=== PATIENT | female | born 1965 | race Caucasian/White ===

== ENCOUNTER → 2017-03-01 | Outpatient (CLI) | payer BC ==
--- NOTE | 2017-03-02 14:24 | RADRPT ---
PROCEDURE: Thyroid uptake and scan CLINICAL INDICATION: Thyrotoxicosis TECHNIQUE: Following the oral administration of 145.3 microcuries of I-123, thyroid uptake and sca n was obtained. COMPARISON: No prior thyroid uptake and scans. FINDINGS: 6 hours radioiodine uptake is 76% (normal range is 5% - 20%). 24 hours radioiodine uptake is 71% (normal range is 7% - 35%). The thyroid scan demonstrates a normal sized thyroid gland with homogeneous distribution of radionuc lide throughout the thyroid gland. IMPRESSION: Scintigraphic findings consistent with Graves' disease with elevated uptake at 6 and 24 hours as dulce cribed in detail the body of report. No scintigraphic evidence of hot or cold nodules. RPTAT: HH Physician Yony Date Time Electronically viewed and signed by Physician Yony on 03/02/2017 14:24 /
== END | disposition home or self-care (01) ==
LOC: NUC 11:35
PROVIDERS: ATTEND Internal Medicine
DX: E05.90 Thyrotoxicosis, unspecified without thyrotoxic crisis or storm (principal)
CPT/HCPCS: 78014; A9516

== ENCOUNTER → 2017-04-19 | Outpatient (CLI) | payer BC ==
--- NOTE | 2017-04-19 16:15 | RADRPT ---
PROCEDURE: I- 131 therapy CLINICAL INDICATION: 52 -year-old patient with hyperthyroidism, for I - 131 ablation. TECHNIQUE: On April 19, 2017, 16.4 mCi of I - 131 were administered orally to the patient. COMPARISON: No prior treatments. FINDINGS: The patient was advised about the nature of the treatment, alternatives, benefits, risks, side effec ts in radiation safety precautions. Written informed consent was obtained. No immediate complications were observed. IMPRESSION: 16.4 mCi of oral I - 131 therapy. RPTAT: QQ .Chasity Selby MD, MD Date Time Electronically viewed and signed by .Chasity Selby MD, on 04/19/2017 16:14 .L/
== END | disposition home or self-care (01) ==
LOC: NUC 13:35
PROVIDERS: ATTEND Internal Medicine
DX: E05.00 Thyrotoxicosis with diffuse goiter without thyrotoxic crisis or storm (principal)
CPT/HCPCS: 79005; A9517